=== PATIENT | male | born 1965 | race African-American/Black ===

== ENCOUNTER 2018-07-29 16:27 | Inpatient (IN) | payer MEDICAID, OTHER ==
[~2018-07-29] VITALS: Ht 172.7 cm; Wt 83.9 kg
--- NOTE | 2018-07-29 17:00 | NUR ---
patient presented to the ER c/o dizziness. On room air, breathing evenly and unlabored. Connected to the monitor and pulse ox. Kept comfortable. will continue to monitor accordingly.
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
[2018-07-29 19:06] LABS: BASOPHILS # (AUTO) 0.1 /CMM (0.0-0.2); BASOPHILS % (AUTO) 0.8 % (0.0-2.0); EOSINOPHILS % (AUTO) 0.4 % (0.0-6.0); HEMATOCRIT 54 % (39-51); LYMPHOCYTES # (AUTO) 2.4 /CMM (0.8-4.8); LYMPHOCYTES % (AUTO) 21.6 % (20.0-44.0); MEAN CORPUSCULAR HGB CONC 34 g/dl (31.0-36.0); MEAN CORPUSCULAR VOLUME 101 fL (80-96); MONOCYTES # (AUTO) 0.7 /CMM (0.1-1.30); MONOCYTES % (AUTO) 6.7 % (2.0-12.0); NEUTROPHILS # (AUTO) 7.7 /CMM (1.8-8.9); NEUTROPHILS % (AUTO) 70.5 % (43.0-81.0); PLATELET COUNT (AUTO) 267 /CMM (150-450); RED BLOOD CELL COUNT(AUTO) 5.28 MIL/uL (4.5-6.0); WHITE BLOOD COUNT (AUTO) 10.9 K/uL (4.3-11.0)
[2018-07-29 19:14] LABS: CALCIUM, SERUM 10.2 mg/dL (8.5-10.1); CREATININE 2.8 mg/dL (0.6-1.3); POTASSIUM 3.7 mmol/L (3.5-5.1)
[2018-07-29 19:25] LABS: ALBUMIN 4.2 g/dL (3.4-5.0); BILIRUBIN,DIRECT 0.3 mg/dL (0.0-0.2); BILIRUBIN,TOTAL 1.3 mg/dL (0.2-1.0); TOTAL PROTEIN, SERUM 9.5 g/dL (6.4-8.2)
[2018-07-29 19:39] LABS: BAND % (MANUAL) 15 % (0.0-5.0); LYMPHOCYTES % (MANUAL) 23 % (16-48); MONOCYTES % (MANUAL) 10 % (0-11.0); NEUTROPHILS % (MANUAL) 52 (42-76)
[2018-07-29 19:44] LABS: CREATINE KINASE, TOTAL 1327 U/L (39-308)
--- NOTE | 2018-07-29 19:56 | NUR ---
Endorsed to Jayleen WASHINGTON for anne marie. Patient in bed resting, in no apparent distress noted.
[2018-07-29] MEDS ORDERED: MAG HYDROX/AL HYDROX/SIMETH 30 ML UDC PO ONE (20:30)
[2018-07-29] MEDS ORDERED: ASPIRIN 81 MG TAB.CHEW PO ONE (20:30)
[2018-07-29 20:33] LABS: APPEARANCE,URINE Slightly Cloudy (CLEAR); BILIRUBIN,URINE Negative (NEGATIVE); BLOOD, URINE Small Ery/uL (NEGATIVE); COLOR,URINE Yellow (YELLOW); KETONES,URINE Negative (NEGATIVE); LEUKOCYTE ESTERASE ,URINE Negative (NEGATIVE); NITRITE, URINE Negative (NEGATIVE); PH,URINE 5.5 (5.0-8.0); PROTEIN,URINE >=300 mg/dl (NEGATIVE); UGLUCOSE Negative (NEGATIVE); UROBILINOGEN,URINE 0.2 EU/dL (0.2)
[2018-07-29] MEDS ORDERED: MAG HYDROX/AL HYDROX/SIMETH 30 ML UDC ONE (20:35)
[2018-07-29] MEDS ORDERED: ASPIRIN 81 MG TAB.CHEW ONE (20:36)
--- NOTE | 2018-07-29 20:44 | NUR ---
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
[2018-07-29 20:47] LABS: BACTERIA,URINE None seen /HPF (None Seen); SQUAMOUS EPITHELIAL CELL,UR Rare /HPF (None Seen); WBC,URINE 0-2 /HPF (0-3)
[2018-07-29] MEDS ORDERED: IV NS 0.9% 1,000 ML IV SCH (21:00)
[2018-07-29] MEDS ORDERED: NITROGLYCERIN 0.4 MG/TAB BOTTLE SL PRN (21:00)
[2018-07-29] MEDS ORDERED: MORPHINE SULFATE INJ 2 MG/ML DISP.SYRIN IV PRN (21:00)
[2018-07-29] MEDS ORDERED: DOCUSATE SODIUM 100 MG CAPSULE PO PRN (21:00)
[2018-07-29] MEDS ORDERED: ONDANSETRON HCL/PF 4 MG/2 ML VIAL IVP PRN (21:00)
[2018-07-29] MEDS ORDERED: MAG HYDROX/AL HYDROX/SIMETH 30 ML UDC PO PRN (21:00)
[2018-07-29] MEDS ORDERED: IV NS 0.9% 1,000 ML IV ONE (21:00)
--- NOTE | 2018-07-29 21:38 | NUR ---
BED 111-2 PER HOUSE SUP
[2018-07-29 21:39] LABS: ACETAMINOPHEN < 10 ug/ml (10-30); ALCOHOL, BLOOD < 3 mg/dL (0-0); SALICYLATE 0.5 mg/dL (2.8-20.0)
--- NOTE | 2018-07-29 21:39 | NUR ---
CHANGED TO BED 116-1 PER HOUSE SUP
--- NOTE | 2018-07-29 21:42 | NUR ---
Filomena pakr in [facility] - 07/29/18 at 2142 by ARNOL REPORT GIVEN TO AGATA WASHINGTON FOR HAY.
--- NOTE | 2018-07-29 21:43 | NUR ---
REPORT GIVEN TO AGATA WASHINGTON FOR HAY.
--- NOTE | 2018-07-29 22:00 | NUR ---
RN NOTES PATIENT ARRIVED VIA GURNEY FROM ER. ABLE TO AMBULATE TO BED ON A STEADY GAIT. PT IS A/O X4, ON ROOM AIR, SATURATING WELL, NO S/S OF RESP DISTRESS. PT IS SR ON THE MONITOR, NO COMPLAINTS OF CHEST PAIN OF THE MOMENT. PT IS CONTINENT. MULTIPLE TATTOOS NOTED, OTHERWISE SKIN IS INTACT. LEFT FOREARM 20G FLUSHED AND PATENT, NO S/S OF INFILTRATION/INFECTION, DRESSING CDI. BED LOW AND LOCKED, SIDERAILS UP, CALL LIGHT WITHIN REACH
[2018-07-29 22:29] VITALS: BP 144/118
[2018-07-30] VITALS: BP 160/111
--- NOTE | 2018-07-30 01:00 | NUR ---
RN NOTES PATIENT IS RESTLESS AND DEMANDING TO GO OUT TO SMOKE A CIGARETTE. PER GUN NUMBER REGGIE TA, PATIENT IS NOT ALLOWED TO SMOKE BUT CAN BE GIVEN THE NICOTINE PATCH SHE HAD ORDERED. PATIENT DECLINED THE NICOTINE PATCH AND INSISTS ON SMOKING INSTEAD. PATIENT WENT BACK TO HIS ROOM AND REMAINED CALM FOR THE MOMENT.
[2018-07-30 04:00] VITALS: BP 166/96
--- NOTE | 2018-07-30 04:30 | NUR ---
RN NOTES PT IS CURRENTLY RESTLESS AND STILL INSISTS ON GOING OUT TO SMOKE A CIGARETTE. PT IS TRYING TO CALL HIS NEPHEW TO PICK HIM UP AND TAKE HIM HOME.
--- NOTE | 2018-07-30 05:00 | NUR ---
RN NOTES ON-CALL REGGIE TA NOTIFIED THAT PATIENT IS CURRENTLY RESTLESS AND CONTINUOUSLY WALKING OUT OF HIS ROOM. PATIENT STATES THAT HE DOES NOT WANT TO STAY AND IS WILLING TO SIGN THE AMA FORM. PER RESEARCH PROFESSOR OF BIOSTATISTICS, PT HAD DONE THE SAME IN ER PRIOR TO GETTING ADMITTED.
[2018-07-30 05:04] LABS: BASOPHILS # (AUTO) 0.1 /CMM (0.0-0.2); BASOPHILS % (AUTO) 0.9 % (0.0-2.0); EOSINOPHILS % (AUTO) 1.4 % (0.0-6.0); HEMATOCRIT 53 % (39-51); HEMOGLOBIN 18.1 g/dL (13.5-17.5); LYMPHOCYTES # (AUTO) 1.5 /CMM (0.8-4.8); LYMPHOCYTES % (AUTO) 19.4 % (20.0-44.0); MEAN CORPUSCULAR HGB CONC 34 g/dl (31.0-36.0); MEAN CORPUSCULAR VOLUME 100 fL (80-96); MONOCYTES # (AUTO) 0.8 /CMM (0.1-1.30); MONOCYTES % (AUTO) 10.2 % (2.0-12.0); NEUTROPHILS # (AUTO) 5.3 /CMM (1.8-8.9); NEUTROPHILS % (AUTO) 68.1 % (43.0-81.0); PLATELET COUNT (AUTO) 257 /CMM (150-450); RED BLOOD CELL COUNT(AUTO) 5.33 MIL/uL (4.5-6.0); WHITE BLOOD COUNT (AUTO) 7.8 K/uL (4.3-11.0)
[2018-07-30 05:17] LABS: CREATININE 2.8 mg/dL (0.6-1.3); PHOSPHORUS 3.2 mg/dL (2.5-4.9); POTASSIUM 3.5 mmol/L (3.5-5.1)
--- NOTE | 2018-07-30 05:50 | NUR ---
RN NOTES PATIENT SIGNED AMA PAPER AND LEFT WITH BIOLOGY TUTOR. LEFT FOREARM IV ACCESS DC'ED. ALL PATIENT BELONGINGS TAKEN BY PATIENT HIMSELF. NO COMPLAINTS OF ANY PAIN OF THE MOMENT. PT LEFT STABLE.
--- NOTE | 2018-07-30 06:00 | NUR ---
RN NOTES RN CIRCULATION MANAGER NANCY NOTIFIED OF PATIENT AMA.
--- NOTE | 2018-07-30 06:15 | NUR ---
RN NOTES INCIDENT REPORT DONE (UNIQUE ID: [id number])
[2018-07-30] MEDS ORDERED: ASPIRIN 325 MG TABLET PO SCH (09:00)
[2018-07-30] MEDS ORDERED: NICOTINE PATCH (14MG) 14 MG PATCH.TD24 TD SCH (09:00)
== END 2018-07-30 05:45 | disposition left against medical advice (07) | DRG 190 ==
LOC: ER 16:29 → TELE1 22:00 → TELE-TD 22:10
PROVIDERS: ADMIT Registered Nurse; ATTEND Registered Nurse
DX: I24.9 Acute ischemic heart disease, unspecified (principal); I21.A1 Myocardial infarction type 2; N17.9 Acute kidney failure, unspecified; M62.82 Rhabdomyolysis; I25.10 Atherosclerotic heart disease of native coronary artery without angina pectoris; F15.99 Other stimulant use, unspecified with unspecified stimulant-induced disorder; E80.6 Other disorders of bilirubin metabolism; R74.0 Nonspecific elevation of levels of transaminase and lactic acid dehydrogenase [LDH]; E86.0 Dehydration; I10 Essential (primary) hypertension; M10.9 Gout, unspecified; Z91.19 Patient's noncompliance with other medical treatment and regimen; F17.210 Nicotine dependence, cigarettes, uncomplicated; E66.9 Obesity, unspecified; Z68.28 Body mass index [BMI] 28.0-28.9, adult
CPT/HCPCS: 36415; 71046; 80048-TC; 80061-TC; 80074; 80076-TC; 80305; 81000-TC; 82550-TC; 82962-TC; 83690-TC; 83735-TC; 84100-TC; 84484-TC; 85025-TC; 85730-TC; 86850-TC; 87081-TC; G0480; J7030

== ENCOUNTER 2020-10-13 18:33 | Emergency (ER) | payer OTHER ==
[~2020-10-13] VITALS: Ht 177.8 cm; Wt 82.1 kg
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
--- NOTE | 2020-10-13 19:21 | NUR ---
PT BACK FROM RADIOLOGY
--- NOTE | 2020-10-14 04:27 | NUR ---
Patient discharged to home in stable condition. Written and verbal after care instructions given. Patient verbalizes understanding of instruction. Pt ambulated out of ED. [id number].
[2020-10-14 04:28] VITALS: BP 119/71
== END 2020-10-14 04:28 | disposition home or self-care (01) ==
LOC: ER 18:37
DX: F10.129 Alcohol abuse with intoxication, unspecified (principal); F12.90 Cannabis use, unspecified, uncomplicated; R41.82 Altered mental status, unspecified; I10 Essential (primary) hypertension; M10.9 Gout, unspecified; Y90.9 Presence of alcohol in blood, level not specified
CPT/HCPCS: 70450-TC; 72125-TC; 82962-TC